=== PATIENT | male | born 1995 | race Caucasian/White ===

== ENCOUNTER 2022-01-17 09:39 | Emergency (ER) | payer OTHER ==
[~2022-01-17] VITALS: Ht 182.9 cm; Wt 140.6 kg
--- NOTE | 2022-01-17 09:57 | NUR ---
BIBS THIS 26YO/MALE WITH CC OF "I was out drinking/smoking Sunday on sunday felt a little off throat/mid chest /epigastric discomfort. Pt AAOx4. Vitals checked. Placed comfortably in bed
--- NOTE | 2022-01-17 10:00 | NUR ---
SEEN BY DR BLANCO AT BEDSIDE WITH ORDERS
--- NOTE | 2022-01-17 10:30 | NUR ---
RESPIRATORY DIRECTOR AT BEDSIDE
--- NOTE | 2022-01-17 10:30 | NUR ---
IV CANNULA G20 INSERTED ON RIGHT AC.
--- NOTE | 2022-01-17 10:45 | NUR ---
WHEELED PATIENT TO RAD DEPT FOR CT SCAN OF NECK WITH CONTRAST
[2022-01-17] MEDS ORDERED: IOHEXOL-300 100 ML VIAL IV ONE (10:50)
[2022-01-17] MEDS ORDERED: IV NS 0.9% 250 ML IV ONE (10:50)
[2022-01-17 10:58] LABS: BASOPHILS % (AUTO) 0.3 % (0.0-2.0); EOSINOPHILS % (AUTO) 0.7 % (0.0-6.0); HEMATOCRIT 44 % (39-51); HEMOGLOBIN 14.4 g/dL (13.5-17.5); LYMPHOCYTES # (AUTO) 1.2 K/uL (0.8-4.8); LYMPHOCYTES % (AUTO) 11.5 % (20.0-44.0); MEAN CORPUSCULAR HGB CONC 33 g/dl (31.0-36.0); MEAN CORPUSCULAR VOLUME 81 fL (80-96); MONOCYTES # (AUTO) 0.9 K/uL (0.1-1.30); MONOCYTES % (AUTO) 8.2 % (2.0-12.0); NEUTROPHILS # (AUTO) 8.5 K/uL (1.8-8.9); NEUTROPHILS % (AUTO) 79.3 % (43.0-81.0); PLATELET COUNT (AUTO) 403 K/uL (150-450); RED BLOOD CELL COUNT(AUTO) 5.46 MIL/uL (4.5-6.0); WHITE BLOOD COUNT (AUTO) 10.7 K/uL (4.3-11.0)
[2022-01-17 11:08] LABS: CALCIUM, SERUM 9.3 mg/dL (8.5-10.1); CARBON DIOXIDE 28 mmol/L (21-32); CHLORIDE 102 mmol/L (98-107); CREATININE 0.9 mg/dL (0.6-1.3); GLUCOSE 115 mg/dL (74-106); POTASSIUM 4.1 mmol/L (3.5-5.1); SODIUM SERUM 139 mmol/L (136-145); UREA NITROGEN, BLOOD 9 mg/dL (7-18)
--- NOTE | 2022-01-17 11:20 | NUR ---
IV CANNULA ON RT AC INFILTRATED BY SALINE DURING CT SCAN. TO HOOK ANOTHER SALINE LOCK
[2022-01-17 11:23] LABS: ALANINE AMINOTRANSFERASE 60 U/L (12-78); ALBUMIN 4.3 g/dL (3.4-5.0); ALKALINE PHOSPHATASE 133 U/L (46-116); ASPARTATE AMINOTRANSFERASE 21 U/L (15-37); BILIRUBIN,DIRECT 0.2 mg/dL (0.0-0.2); BILIRUBIN,TOTAL 0.8 mg/dL (0.2-1.0)
--- NOTE | 2022-01-17 11:26 | NUR ---
SPOKE TO SUDEEP OF RADIOLOGY, HE'LL DO XRAY NOW
--- NOTE | 2022-01-17 12:05 | NUR ---
CT ABDOMEN WITH CONTRAST DONE
[2022-01-17 13:11] VITALS: BP 141/84
--- NOTE | 2022-01-17 13:11 | NUR ---
IV removed. Catheter intact and site benign. Pressure and 4x4 applied to site. No bleeding noted.Patient discharged to home in stable condition. Written and verbal after care instructions given. Patient verbalizes understanding of instruction.
== END 2022-01-17 13:12 | disposition home or self-care (01) ==
LOC: ER 09:46
DX: R06.02 Shortness of breath (principal); R09.89 Other specified symptoms and signs involving the circulatory and respiratory systems; E66.01 Morbid (severe) obesity due to excess calories; E78.00 Pure hypercholesterolemia, unspecified; Z68.41 Body mass index [BMI] 40.0-44.9, adult
CPT/HCPCS: 36415; 70491; 71045; 80048; 80076; 83880; 84484; 85025; 85378; 85730; 93005; 99285; J7050; Q9967